=== PATIENT | male | born 1940 | race Caucasian/White ===

== ENCOUNTER 2016-06-16 07:24 | Inpatient (IN) | payer MEDICARE, BC ==
[~2016-06-16 07:24] MED LIST: ALTACE2.5 M3 PO; ASPIRIN325 M3 PO; FENOFIBRATE145 M2 PO; ISOSORBIDE MONO30 M4 PO; LASIX40 M1 PO; LORTAB 5-325 M1 EAC1 PO; MELOXICAM15 M1 PO; PROTONIX40 M2 PO; RYTHMOL SR225 M1 PO; TYLENOL EXTRA500 M1 PO
[2016-06-17 06:38] LABS: ANION GAP 11 mmol/L (0-20); BLOOD UREA NITROGEN 20 mg/dl (6-24); CARBON DIOXIDE-VENOUS 25 mmol/L (22-32); CHLORIDE 107 mmol/l (96-110); CREATININE 0.93 mg/dl (0.60-1.30); GLUCOSE 98 mg/dL (70-110); POTASSIUM 4.4 mmol/L (3.7-5.1); SODIUM 139 mmol/L (135-145); eGFR VALUE FOR BLACK >90 mL/Min
== END 2016-06-17 11:30 | DRG 520 ==
LOC: SHSB 07:24 → ORE 08:33 → PACU 11:00 → 5EB 12:10
PROVIDERS: Family Medicine; ADMIT Orthopaedic Surgery Orthopaedic Surgery of the Spine
PROC: 0SB20ZZ Excision of Lumbar Vertebral Disc, Open Approach (ICD-10-PCS; principal; 2016-06-16)
PROC: 01NB0ZZ Release Lumbar Nerve, Open Approach (ICD-10-PCS; 2016-06-16)
DX: M51.16 Intervertebral disc disorders with radiculopathy, lumbar region (principal); I48.91 Unspecified atrial fibrillation; I10 Essential (primary) hypertension; M48.06 Spinal stenosis, lumbar region; M48.07 Spinal stenosis, lumbosacral region; I25.10 Atherosclerotic heart disease of native coronary artery without angina pectoris; G47.33 Obstructive sleep apnea (adult) (pediatric); M99.73 Connective tissue and disc stenosis of intervertebral foramina of lumbar region; E66.9 Obesity, unspecified; N28.9 Disorder of kidney and ureter, unspecified; E78.5 Hyperlipidemia, unspecified; I73.9 Peripheral vascular disease, unspecified; Z85.46 Personal history of malignant neoplasm of prostate; Z95.5 Presence of coronary angioplasty implant and graft; Z87.891 Personal history of nicotine dependence; Z68.28 Body mass index [BMI] 28.0-28.9, adult
CPT/HCPCS: J0690; J2270